=== PATIENT | male | born 1955 | race Caucasian/White ===

== ENCOUNTER → 2019-07-26 07:47 | Outpatient (CLI) | payer OTHER | END | disposition home or self-care (01) | LOC: D.RAD 07:47 | PROVIDERS: ATTEND Family Medicine | DX: K21.9 Gastro-esophageal reflux disease without esophagitis (principal) ==

== ENCOUNTER 2019-09-12 07:30 | Day surgery (SDC) | payer OTHER ==
[~2019-09-12] VITALS: Ht 175.3 cm; Wt 111.1 kg
[~2019-09-12 07:30] MED LIST: NORVASC2.5 MG PO; PROTONIX40 MG PO; SINGULAIR10 MG PO; TESTOSTERONE IM
[2019-09-12 08:18] LABS: HEMATOCRIT 46.5 % (42.0-54.0); HEMOGLOBIN 15.6 g/dL (13.5-17.5); MCH 31.1 pg (26.0-34.0); MCHC 33.5 g/dL (31.0-37.0); MCV 92.6 fL (80.0-100.0); RBC 5.02 10x6/uL (4.20-6.10); RDW 12.6 % (11.5-14.5); WBC 6.8 10x3/uL (4.8-10.8)
[2019-09-12 09:11] VITALS: BP 137/80; Ht 175.3 cm; Wt 111.1 kg
[2019-09-12] MEDS ORDERED: HYDROCODON-ACE1 EA10 PO (12:42)
--- NOTE | 2019-10-03 07:08 | OP ---
PATIENT NAME: MARLIN ANDERS MEDICAL RECORD: [id number] LOCATION:D[facility] ADMISSION DATE: SURGEON: CLEMENT CONTRERAS MD DATE OF OPERATION: 09/12/2019 PREOPERATIVE DIAGNOSIS: Fracture of lateral malleolus, left ankle. POSTOPERATIVE DIAGNOSIS: Fracture of lateral malleolus, left ankle. PROCEDURE: Open reduction and internal fixation of fractured lateral malleolus. SURGEON: Clement Contreras MD NURSE STAFF [facility]: JULIANA Hoffman INTRAOPERATIVE COMPLICATIONS: None. SUMMARY OF PATHOLOGIC FINDINGS: The patient was indeed found to have a displaced lateral malleolus consistent with preoperative radiographs. OPERATIVE SUMMARY IN DETAIL: After obtaining the appropriate preoperative orthopedic surgery consent as well as anesthetic consultation, evaluation and clearance, the patient was brought to the operating room and placed on the operating table in supine position. After adequate general laryngeal mask was administered, tourniquet was placed about the proximal aspect of left lower extremity. Left lower extremity was then prepped and draped in routine sterile fashion. The leg was elevated and exsanguinated, tourniquet inflated to 350 mmHg. Routine timeout was taken and agreed upon by all given the patient's unique identifiers. Incision was made over the lateral mass from the tip of the lateral malleolus down to the fibula. Fracture was identified and all interposed fracture hematoma was removed and thoroughly irrigated. Fracture reduction was then completed with reduction forceps. Provisional K-wire then held the fracture in place while a Offerle VariAx 2 plate was then put into place with a combination of both compression and locking screws. This was all done under fluoroscopy. Final AP and lateral radiographs were taken and submitted for radiographic review. The wound was then copiously irrigated and closed with #1 Vicryl, 2-0 Vicryl and skin marlee done by JULIANA Hoffman. Sterile dressings were applied. Tourniquet was deflated. Posterior L&U splint was applied. The patient was then awakened and taken to the recovery room in stable condition. All final needle and sponge counts were correct. TRANSINT:[id number] Voice Confirmation ID: [id number] DOCUMENT ID: [id number] CLEMENT CONTRERAS MD at 0708 CC: [id number] DICTATION DATE: 10/02/19 1430 HOLE FILLER: 10/02/19 1612 [facility] 09/12/19 [facility] [address] [place] [address]
== END 2019-09-12 14:43 | disposition home or self-care (01) ==
LOC: D.OPS 07:30 → D.PAN 09:45 → D.OPS 10:00
PROVIDERS: Anesthesiology; ATTEND Orthopaedic Surgery
DX: S82.62XA Displaced fracture of lateral malleolus of left fibula, initial encounter for closed fracture (principal); M25.572 Pain in left ankle and joints of left foot; X58.XXXA Exposure to other specified factors, initial encounter

== ENCOUNTER → 2020-07-15 12:46 | Outpatient (CLI) | payer OTHER ==
[2019-09-12 09:11] VITALS: BMI 36.2
[~2020-07-15 12:46] MED LIST changes: +HYDROCODON-ACE1 EA10 PO
== END | disposition home or self-care (01) ==
LOC: D.CT 12:46
PROVIDERS: ATTEND Family Medicine
DX: R05 Cough (principal)

== ENCOUNTER → 2020-07-27 08:00 | Outpatient (CLI) | payer OTHER ==
[2019-09-12 09:11] VITALS: BMI 36.2
== END | disposition home or self-care (01) ==
LOC: D.CT 08:00
PROVIDERS: ATTEND Family Medicine
DX: K76.89 Other specified diseases of liver (principal)

== ENCOUNTER → 2020-08-03 08:27 | Outpatient (CLI) | payer OTHER ==
[2019-09-12 09:11] VITALS: BMI 36.2
== END | disposition home or self-care (01) ==
LOC: D.MRI 08:15
PROVIDERS: ATTEND Family Medicine
DX: R16.0 Hepatomegaly, not elsewhere classified (principal)